=== PATIENT | male | born 2000 | race Caucasian/White ===

== ENCOUNTER 2021-01-08 09:17 | Emergency (ER) | payer OTHER ==
[~2021-01-08] VITALS: Ht 177 cm; Wt 61.0 kg
--- NOTE | 2021-01-08 09:33 | ED Neurological Problem ---
General Chief Complaint: Neurological Problems Stated Complaint: SEIZURE Source: patient Exam Limitations: no limitations History of Present Illness Date Seen by Provider: Jan 08, 2021 Time Seen by Provider: 09:20 Initial Comments Patient is a 20-year-old male who presents to the emergency department after seizure this morning while at [facility]. Patient was going to get some breakfast when he had a witnessed "grand mall seizure". Lasted approxima tely 4 minutes per the student health physician who was present as well as one of our local nurse practitioners. Patient complains of a mild headache. He is slightly nauseated. He admits to not taking his Tegretol as prescribed. No complaints of injury/pain. Patient is also on Vyvanse for ADHD. Timing/Duration: 1/2 hour Severity: mild Associated Symptoms: nausea/vomiting, other (Headache) Allergies and Home Medications Patient Home Medication List Home Medication List Reviewed: Yes Review of Systems Review of Systems Constitutional: see HPI Eyes: No Symptoms Reported Ears, Nose, Mouth, Throat: no symptoms reported Respiratory: no symptoms reported Cardiovascular: no symptoms reported Gastrointestinal: no symptoms reported Genitourinary: no symptoms reported Musculoskeletal: no symptoms reported Skin: no symptoms reported Psychiatric/Neurological: Headache Endocrine: No Symptoms Reported All Other Systems Reviewed Negative Unless Noted: Yes Physical Exam Vital Signs Vital Signs - First Documented 01/08/21 09:17 Temp 36.2 Pulse 99 Resp 18 B/P (MAP) 136/80 (98) Pulse Ox 100 O2 Delivery Room Air Capillary Refill : Height, Weight, BMI Height: '" Weight: lbs. oz. kg; BMI Method: General Appearance: WD/WN, no apparent distress HEENT: PERRL/EOMI, normal ENT inspection Neck: non-tender, supple, normal inspection, other (Patient initially presents in a cervical collar. He has no midline tenderness, no distracting injury, does not appear intoxicated. 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, no motor/sensory deficits, alert, normal mood/affect, oriented x 3 Crainal Nerves: normal hearing, normal speech, PERRL Motor/Sensory: no motor deficit, no sensory deficit Skin: normal color, warm/dry Progress/Results/Core Measures Results/Orders Lab Results Laboratory Tests Test 01/08/21 09:40 Range/Units Sodium Level 139 135-145 MMOL/L Potassium Level 3.6 3.6-5.0 MMOL/L Chloride Level 105 98-107 MMOL/L Carbon Dioxide Level 22 21-32 MMOL/L Anion Gap 12 5-14 MMOL/L Blood Urea Nitrogen 13 7-18 MG/DL Creatinine 0.88 0.60-1.30 MG/DL Estimat Glomerular Filtration Rate 110 BUN/Creatinine Ratio 15 Glucose Level 114 H 70-105 MG/DL Calcium Level 9.0 8.5-10.1 MG/DL My Orders Orders - ARSLAN POWELL MD Basic Metabolic Panel (01/08/21 09:27) Vital Signs/I&O 01/08/21 01/08/21 09:17 10:42 Temp 36.2 Pulse 99 90 Resp 18 16 B/P (MAP) 136/80 (98) 126/70 Pulse Ox 100 98 O2 Delivery Room Air Room Air Progress Progress Note : Time: 12:46 Progress Note I did communicate to the patient no driving for 6 months due to recurrent seizure. I did not specifically states this however, on his written discharge instructions, I will be completeing a form for the [facility] [employer] however, and the patinet is made aware of this - and signed the form regarding this ([id number]). Departure Impression Primary Impression: Seizure Additional Impression: Medical non-compliance Disposition: 01 HOME, SELF-CARE Condition: Stable Departure-Patient Inst. Decision time for Depature: 09:31 Referrals: TONY JERRY MD Patient Instructions: Seizures, Why Taking Your Medicine or Drug as Ordered Is Important Add. Discharge Instructions: Please take your daily prescribed medications as directed, every day. Follow up with the [facility]. Return to the emergency department for any new, concerning or emergent symptoms. Tylenol or ibuprofen as needed for headache. ARSLAN POWELL MD Jan 08, 2021 09:33
[2021-01-08 09:57] LABS: POTASSIUM 3.6 MMOL/L (3.6-5.0)
[2021-01-08 10:03] LABS: CREATININE SERUM 0.88 MG/DL (0.60-1.30)
[2021-01-08 10:42] VITALS: BP 126/70
== END 2021-01-08 10:40 | disposition home or self-care (01) ==
LOC: ER 09:19
DX: G40.409 Other generalized epilepsy and epileptic syndromes, not intractable, without status epilepticus (principal)
CPT/HCPCS: 36415; 80048

== ENCOUNTER 2022-09-18 11:33 | Emergency (ER) | payer OTHER ==
[~2022-09-18] VITALS: Ht 170 cm; Wt 68.0 kg
--- NOTE | 2022-09-18 11:52 | ED Neurological Problem ---
General Chief Complaint: Neurological Problems Stated Complaint: SEIZURE Nursing Triage Note: PT PRESENTS TO ED AFTER HAVING A WITNESSED SEIZURE. PT DENIES HAVING LOSS OF BOWEL OR BLADDER CONTROL, PUT DID HAVE ONE EPISODE OF EMESIS. PT A&OX3 AT TIME OF TRIAGE. PT DENIES PAIN BUT C/O DIZZINESS AND TIREDNESS. 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 This occurred 1 hour ago. Patient works at the [employer]. Patient felt like he was going to have a seizure and went to a another room. One of his friends witnessed a 5 to 10-minute seizure. Friend at bed side Reports patient having convulsions and than having difficulty breathing. After the seizure patient did vomit once and took about 15 to 20 minutes before he became more oriented. Patient takes oxcarbazepine 600 mg times 2 in the morning. Did take his dose this morning. Last seizure was in November. Follows a neurologist in [place]. Last seen 1 year ago. Patient reports some mild dizziness and lightheadedness. Patient did fall but denies hitting his head. Denies of any headache, neck pain, back pain, chest pain, shortness of breath fever, diarrhea, abdominal pain, drug use. Patient denies bowel or urine incontinence Allergies and Home Medications Allergies Coded Allergies: No Known Drug Allergies (Unverified , 09/18/22) Patient Home Medication List Home Medication List Reviewed: Yes Review of Systems Review of Systems Constitutional: No chills, No diaphoresis, No malaise Eyes: Denies Blurred Vision, Denies Drainage, Denies Decreased Acuity Ears, Nose, Mouth, Throat: denies ear pain, denies ear discharge Respiratory: No cough, No dyspnea on exertion Cardiovascular: No chest pain Gastrointestinal: No abdominal pain, No diarrhea; nausea, vomiting Genitourinary: No decreased output Musculoskeletal: No back pain, No joint pain Skin: No change in color, No change in hair/nails Psychiatric/Neurological: Other (seizure) All Other Systems Reviewed Negative Unless Noted: Yes Past [id number] Hx Patient Social History Tobacco Use?: No Substance use?: No Alcohol Use?: No Pt feels they are or have been: No Physical Exam Vital Signs Vital Signs - First Documented 09/18/22 11:39 Pulse 104 Resp 18 B/P (MAP) 114/68 (83) Pulse Ox 96 O2 Delivery Room Air Capillary Refill : Less Than 3 Seconds Height, Weight, BMI Height: '" Weight: lbs. oz. 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, no motor/sensory deficits, alert, normal mood/affect Coordination/Gait: normal finger to nose, normal gait Motor/Sensory: no motor deficit, no sensory deficit Skin: normal color, warm/dry Progress/Results/Core Measures Results/Orders Lab Results Laboratory Tests Test 09/18/22 11:30 Range/Units White Blood Count 8.2 4.3-11.0 10^3/uL Red Blood Count 5.38 4.30-5.52 10^6/uL Hemoglobin 15.6 13.3-17.7 g/dL Hematocrit 47 40-54 % Mean Corpuscular Volume 87 80-99 fL Mean Corpuscular Hemoglobin 29 25-34 pg Mean Corpuscular Hemoglobin Concent 33 32-36 g/dL Red Cell Distribution Width 12.3 10.0-14.5 % Platelet Count 290 130-400 10^3/uL Mean Platelet Volume 8.5 L 9.0-12.2 fL Immature Granulocyte % (Auto) 1 % Neutrophils (%) (Auto) 56 42-75 % Lymphocytes (%) (Auto) 35 12-44 % Monocytes (%) (Auto) 7 0-12 % Eosinophils (%) (Auto) 1 0-10 % Basophils (%) (Auto) 1 0-10 % Neutrophils # (Auto) 4.6 1.8-7.8 10^3/uL Lymphocytes # (Auto) 2.8 1.0-4.0 10^3/uL Monocytes # (Auto) 0.6 0.0-1.0 10^3/uL Eosinophils # (Auto) 0.1 0.0-0.3 10^3/uL Basophils # (Auto) 0.1 0.0-0.1 10^3/uL Immature Granulocyte # (Auto) 0.1 0.0-0.1 10^3/uL Urine Color YELLOW Urine Clarity CLEAR Urine pH 6.0 5-9 Urine Specific [place] >=1.030 1.016-1.022 Urine Protein 1+ H NEGATIVE Urine Glucose (UA) NEGATIVE NEGATIVE Urine Ketones NEGATIVE NEGATIVE Urine Nitrite NEGATIVE NEGATIVE Urine Bilirubin NEGATIVE NEGATIVE Urine Urobilinogen 0.2 < = 1.0 MG/DL Urine Leukocyte Esterase NEGATIVE NEGATIVE Urine RBC (Auto) TRACE-I H NEGATIVE Urine RBC 0-2 /HPF Urine WBC 0-2 /HPF Urine Crystals PRESENT H /LPF Urine Amorphous Sediment FEW IRON URATES H /LPF Urine Bacteria NEGATIVE /HPF Urine Casts NONE /LPF Urine Mucus LARGE H /LPF Urine Culture Indicated NO Sodium Level 137 135-145 MMOL/L Potassium Level 3.6 3.6-5.0 MMOL/L Chloride Level 106 98-107 MMOL/L Carbon Dioxide Level 16 L 21-32 MMOL/L Anion Gap 15 H 5-14 MMOL/L Blood Urea Nitrogen 12 7-18 MG/DL Creatinine 1.00 0.60-1.30 MG/DL Estimat Glomerular Filtration Rate 109 BUN/Creatinine Ratio 12 Glucose Level 143 H 70-105 MG/DL Calcium Level 9.4 8.5-10.1 MG/DL Corrected Calcium 8.5-10.1 MG/DL Total Bilirubin 0.5 0.1-1.0 MG/DL Aspartate Amino Transf (AST/SGOT) 23 5-34 U/L Alanine Aminotransferase (ALT/SGPT) 28 0-55 U/L Alkaline Phosphatase 73 40-136 U/L Total Protein 8.0 6.4-8.2 GM/DL Albumin 4.7 H 3.2-4.5 GM/DL Urine Opiates Screen NEGATIVE NEGATIVE Urine Oxycodone Screen NEGATIVE NEGATIVE Urine Methadone Screen NEGATIVE NEGATIVE Urine Propoxyphene Screen NEGATIVE NEGATIVE Urine Barbiturates Screen NEGATIVE NEGATIVE Ur Tricyclic Antidepressants Screen NEGATIVE NEGATIVE Urine Phencyclidine Screen NEGATIVE NEGATIVE Urine Amphetamines Screen NEGATIVE NEGATIVE Urine Methamphetamines Screen NEGATIVE NEGATIVE Urine Benzodiazepines Screen NEGATIVE NEGATIVE Urine Cocaine Screen NEGATIVE NEGATIVE Urine Cannabinoids Screen POSITIVE H NEGATIVE My Orders Orders - MAURICIO MATTSON Ua Culture If Indicated (09/18/22 11:38) Drug Screen Stat (Urine) (09/18/22 11:38) Cbc With Automated Diff (09/18/22 11:47) Comprehensive Metabolic Panel (09/18/22 11:47) Trileptal (09/18/22 11:52) Ns Iv 1000 Ml (Sodium Chloride 0.9%) (09/18/22 12:41) Vital Signs/I&O 09/18/22 09/18/22 11:39 14:33 Pulse 104 78 Resp 18 18 B/P (MAP) 114/68 (83) 119/80 Pulse Ox 96 100 O2 Delivery Room Air Room Air Blood Pressure Mean: 83 Departure Communication (PCP) Patient Is a 22-year-old male who presents to ED for a seizure. Seizure lasted between 5 to 10 minutes one hour before arrival. Patient is currently on oxcarbazepine 600 mg twice in the morning. Patient last seizure was in November. Patient was at work this morning. This was witnessed. Wtinessed Denies patient hitting his head. Witness noted convulsions and patient became postictal for a short period of time. On arrival alert and orient x4. Ambulating without any difficulties. Stable vital signs. Differential diagnosis seizure, electrolyte abnormality. Patient states he has increased his workload over the past week with increased stress. 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 All Could be contributing to the seizure today. Denies of any headache but does report some lightheadedness and fuzziness. No focal neural deficits. No neurological red flag findings at this time. Seizure precautions. No imaging of the head needed at this time. General lab work, urinalysis was ordered. Reports marijuana use. CBC, CMP grossly unremarkable. Patient did receive a li ter of fluid as he states he feels dehydrated. Patient was observed for 3 hours without any seizure-like activity. Patient feels comfortable to be discharged. Discussed since he had a seizure recommend no driving for the next 6 months. Recommend contacting his neurologist who is in [facility] for further evaluation. May need medication changes versus change in his lifestyle. Recommend rest for the next 2 days. Recommend staying hydrated. Avoid alcohol use. If any worsening symptoms or continued seizures, I recommend returning to the ED Impression Primary Impression: Seizure Disposition: 01 HOME, SELF-CARE Condition: Stable Departure-Patient Inst. Decision time for Depature: 14:17 Referrals: [facility] [place],LOCAL PHYSICIAN (PCP) Primary Care Physician Patient Instructions: Seizures, Adult (DC) Add. Discharge Instructions: Recommend no driving. Discussed these results with your neurologist with a follow-up. If continued seizures recommend returning back to the ED. Would advise resting for the next few days. Avoid any alcohol. All discharge instructions reviewed with patient and/or family. Voiced understanding. MAURICIO MATTSON Sep 18, 2022 11:52
[2022-09-18 11:56] LABS: BILIRUBIN,URINE NEGATIVE (NEGATIVE); CLARITY,URINE CLEAR; COLOR,URINE YELLOW; GLUCOSE, URINE (UA) NEGATIVE (NEGATIVE); KETONES,URINE NEGATIVE (NEGATIVE); LEUKOCYTE ESTERASE ,URINE NEGATIVE (NEGATIVE); NITRITE,URINE NEGATIVE (NEGATIVE); PROTEIN,URINE 1+ (NEGATIVE)
[2022-09-18 11:59] LABS: BASOPHILS # (AUTO) 0.1 10^3/uL (0.0-0.1); BASOPHILS % (AUTO) 1 % (0-10); EOSINOPHILS # (AUTO) 0.1 10^3/uL (0.0-0.3); EOSINOPHILS % (AUTO) 1 % (0-10); HEMATOCRIT 47 % (40-54); HEMOGLOBIN 15.6 g/dL (13.3-17.7); LYMPHOCYTES # (AUTO) 2.8 10^3/uL (1.0-4.0); LYMPHOCYTES % (AUTO) 35 % (12-44); MEAN CORPUSCULAR HEMOGLOBIN 29 pg (25-34); MEAN CORPUSCULAR HGB CONC 33 g/dL (32-36); MEAN CORPUSCULAR VOLUME 87 fL (80-99); MEAN PLATELET VOLUME 8.5 fL (9.0-12.2); MONOCYTES # (AUTO) 0.6 10^3/uL (0.0-1.0); MONOCYTES % (AUTO) 7 % (0-12); NEUTROPHILS # (AUTO) 4.6 10^3/uL (1.8-7.8); NEUTROPHILS % (AUTO) 56 % (42-75); PLATELET COUNT 290 10^3/uL (130-400); WHITE BLOOD COUNT 8.2 10^3/uL (4.3-11.0)
[2022-09-18 12:04] LABS: ALBUMIN 4.7 GM/DL (3.2-4.5); CHLORIDE 106 MMOL/L (98-107); POTASSIUM 3.6 MMOL/L (3.6-5.0); SODIUM 137 MMOL/L (135-145)
[2022-09-18 12:05] LABS: AMORPHOUS SEDIMENT,UR FEW AMOR URATES /LPF; BACTERIA,URINE NEGATIVE /HPF; CALCIUM 9.4 MG/DL (8.5-10.1); RBC,URINE 0-2 /HPF; WBC,URINE 0-2 /HPF
[2022-09-18 12:06] LABS: GLUCOSE 143 MG/DL (70-105)
[2022-09-18 12:08] LABS: BILIRUBIN,TOTAL 0.5 MG/DL (0.1-1.0); CARBON DIOXIDE 16 MMOL/L (21-32)
[2022-09-18 12:10] LABS: ALKALINE PHOSPHATASE 73 U/L (40-136); GFR ESTIMATED 109
[2022-09-18 12:11] LABS: BUN/CREATININE RATIO 12
[2022-09-18 12:13] LABS: ALANINE AMINOTRANSFERASE 28 U/L (0-55)
[2022-09-18 12:14] LABS: AMPHETAMINE SCREEN, URINE NEGATIVE (NEGATIVE); BARBITURATE SCREEN URINE NEGATIVE (NEGATIVE); BENZODIAZEPINES SCREEN URINE NEGATIVE (NEGATIVE); CANNABINOID SCREEN, URINE POSITIVE (NEGATIVE); COCAINE SCREEN URINE NEGATIVE (NEGATIVE); METHADONE STAT NEGATIVE (NEGATIVE); OPIATE SCREEN URINE NEGATIVE (NEGATIVE); OXYCODONE STAT NEGATIVE (NEGATIVE); PROPOXYPHENE STAT NEGATIVE (NEGATIVE); TRICYCLIC ANTIDEPRESSANTS SCRE NEGATIVE (NEGATIVE)
[2022-09-18] MEDS ORDERED: NS IV 1000 ML 1,000 ML IV STA (12:41)
[2022-09-18 14:33] VITALS: BP 119/80
== END 2022-09-18 14:42 | disposition home or self-care (01) ==
LOC: EDUNIT# 11:33 → ER 11:34
DX: G40.909 Epilepsy, unspecified, not intractable, without status epilepticus (principal); Z79.899 Other long term (current) drug therapy
CPT/HCPCS: 36415; 80053; 80183; 80306; 81000; 85025